=== PATIENT | female | born 2005 | race African-American/Black ===

== ENCOUNTER 2024-07-05 17:36 | Emergency (ER) | payer SELFPAY ==
[2024-07-05] MEDS ORDERED: FLUoxetine HCl 10 MG CAP PO SCH (18:45)
== END 2024-07-05 18:48 | disposition home or self-care (01) ==
LOC: MADERS 17:36
DX: Z76.0 Encounter for issue of repeat prescription (principal); F17.200 Nicotine dependence, unspecified, uncomplicated
CPT/HCPCS: 99283